=== PATIENT | male | born 1965 | race African-American/Black ===

== ENCOUNTER 2020-07-14 13:01 | Inpatient (IN) | payer OTHER ==
[~2020-07-14 13:01] MED LIST: ACETAMINOPHEN 325 MG TABLET (FP) PO PRN; LOPERAMIDE HCL 2 MG CAPSULE PO PRN; MAGNESIUM CITRATE 300 ML BOTTLE PO PRN; MAGNESIUM HYDROX 2400MG/30ML ORAL SUSPENSION 30 ML CUP PO PRN; NICOTINE POLACRILEX 2 MG GUM BUC PRN; P-EPHED 60MG/TRIPROLIDI 2.5MG TABLET PO PRN; guaiFENesin 200 MG/10 ML 10 ML UNIT-DOSE CUPS PO PRN
[2020-07-14] MEDS: INSULIN SLIDING SCALE (NOVOLOG) 1 VIAL SQ SCH ×3 (14:33→21:08)
[2020-07-14] MEDS: THIAMINE HCL 100 MG TABLET (FP) PO SCH (21:04)
[2020-07-14] MEDS: MELATONIN 5 MG TABLETS PO SCH (21:04)
[2020-07-14] MEDS: LIDOCAINE PATCH REMOVAL MC SCH (21:08)
[2020-07-14] MEDS ORDERED: INSULIN (NOVOLOG) ASPART 100 UNITS/ML 10ML VIAL ONE (21:44)
[2020-07-15] MEDS ORDERED: INSULIN (NOVOLOG) ASPART 100 UNITS/ML 10ML VIAL ONE ×3 (05:58→21:46)
[2020-07-15] MEDS: INSULIN SLIDING SCALE (NOVOLOG) 1 VIAL SQ SCH ×4 (06:00→21:38)
[2020-07-15] MEDS: LIDOCAINE 5% TOPICAL PATCH TP SCH (09:37)
[2020-07-15] MEDS: NICOTINE 7 MG/24 HOURS TOPICAL PATCH TD SCH (09:38)
[2020-07-15] MEDS: PANTOPRAZOLE 20 MG TABLET PO SCH (09:38)
[2020-07-15] MEDS: LISINOPRIL 20 MG TABLET PO SCH (09:38)
[2020-07-15] MEDS: PRENATAL VITAMINS W/ FOLIC ACID TABLET (FP) PO SCH (09:38)
[2020-07-15] MEDS: METHOCARBAMOL 500 MG TABLET PO SCH ×4 (09:38→21:35)
[2020-07-15] MEDS ORDERED: amLODIPine BESYLATE 10 MG TABLET (FP) PO SCH (10:00)
[2020-07-15] MEDS: THIAMINE HCL 100 MG TABLET (FP) PO SCH (21:35)
[2020-07-15] MEDS: MELATONIN 5 MG TABLETS PO SCH (21:35)
[2020-07-15] MEDS: LIDOCAINE PATCH REMOVAL MC SCH (21:39)
[2020-07-16] MEDS: amLODIPine BESYLATE 10 MG TABLET (FP) PO SCH (06:10)
[2020-07-16] MEDS: IBUPROFEN 400 MG TABLET (FP) PO PRN (06:13)
[2020-07-16] MEDS: INSULIN SLIDING SCALE (NOVOLOG) 1 VIAL SQ SCH ×4 (07:21→21:00)
[2020-07-16] MEDS ORDERED: INSULIN (NOVOLOG) ASPART 100 UNITS/ML 10ML VIAL ONE ×3 (07:21→21:39)
[2020-07-16] MEDS: PANTOPRAZOLE 20 MG TABLET PO SCH (09:56)
[2020-07-16] MEDS: LISINOPRIL 20 MG TABLET PO SCH (09:56)
[2020-07-16] MEDS: PRENATAL VITAMINS W/ FOLIC ACID TABLET (FP) PO SCH (09:56)
[2020-07-16] MEDS: LIDOCAINE 5% TOPICAL PATCH TP SCH (09:57)
[2020-07-16] MEDS: METHOCARBAMOL 500 MG TABLET PO SCH ×4 (09:57→21:00)
[2020-07-16] MEDS: NICOTINE 7 MG/24 HOURS TOPICAL PATCH TD SCH (09:58)
[2020-07-16] MEDS ORDERED: INSULIN REGULAR HUMAN 100 UNITS/ML *VIAL SQ ONE (11:57)
[2020-07-16] MEDS ORDERED: INSULIN (NOVOLOG) ASPART 100 UNITS/ML 10ML VIAL SQ ONE ×2 (11:58→14:14)
[2020-07-16] MEDS: MELATONIN 5 MG TABLETS PO SCH (21:00)
[2020-07-16] MEDS: THIAMINE HCL 100 MG TABLET (FP) PO SCH (21:00)
[2020-07-16] MEDS: LIDOCAINE PATCH REMOVAL MC SCH (21:00)
[2020-07-17] MEDS: amLODIPine BESYLATE 10 MG TABLET (FP) PO SCH (05:59)
[2020-07-17] MEDS: INSULIN SLIDING SCALE (NOVOLOG) 1 VIAL SQ SCH ×4 (06:52→22:07)
[2020-07-17] MEDS: INSULIN (NOVOLOG MIX 70/30) 100 UNITS/ML MDV SQ SCH (06:52)
[2020-07-17] MEDS ORDERED: INSULIN (NOVOLOG) ASPART 100 UNITS/ML 10ML VIAL ONE ×4 (06:54→22:04)
[2020-07-17] MEDS: PANTOPRAZOLE 20 MG TABLET PO SCH (09:45)
[2020-07-17] MEDS: NICOTINE 7 MG/24 HOURS TOPICAL PATCH TD SCH (09:45)
[2020-07-17] MEDS: LISINOPRIL 20 MG TABLET PO SCH (09:45)
[2020-07-17] MEDS: METHOCARBAMOL 500 MG TABLET PO SCH ×4 (09:45→22:06)
[2020-07-17] MEDS: LIDOCAINE 5% TOPICAL PATCH TP SCH (09:45)
[2020-07-17] MEDS: PRENATAL VITAMINS W/ FOLIC ACID TABLET (FP) PO SCH (09:45)
[2020-07-17] MEDS: MELATONIN 5 MG TABLETS PO SCH (22:05)
[2020-07-17] MEDS: THIAMINE HCL 100 MG TABLET (FP) PO SCH (22:05)
[2020-07-17] MEDS: LIDOCAINE PATCH REMOVAL MC SCH (22:06)
[2020-07-18] MEDS: amLODIPine BESYLATE 10 MG TABLET (FP) PO SCH (06:09)
[2020-07-18] MEDS ORDERED: INSULIN (NOVOLOG) ASPART 100 UNITS/ML 10ML VIAL ONE ×4 (07:04→22:07)
[2020-07-18] MEDS: INSULIN SLIDING SCALE (NOVOLOG) 1 VIAL SQ SCH ×4 (07:05→22:09)
[2020-07-18] MEDS: INSULIN (NOVOLOG MIX 70/30) 100 UNITS/ML MDV SQ SCH (07:19)
[2020-07-18] MEDS: PANTOPRAZOLE 20 MG TABLET PO SCH (09:33)
[2020-07-18] MEDS: PRENATAL VITAMINS W/ FOLIC ACID TABLET (FP) PO SCH (09:33)
[2020-07-18] MEDS: NICOTINE 7 MG/24 HOURS TOPICAL PATCH TD SCH (09:33)
[2020-07-18] MEDS: LIDOCAINE 5% TOPICAL PATCH TP SCH (09:33)
[2020-07-18] MEDS: LISINOPRIL 20 MG TABLET PO SCH (09:33)
[2020-07-18] MEDS: METHOCARBAMOL 500 MG TABLET PO SCH ×4 (09:33→21:13)
[2020-07-18] MEDS: THIAMINE HCL 100 MG TABLET (FP) PO SCH (21:13)
[2020-07-18] MEDS: LIDOCAINE PATCH REMOVAL MC SCH (21:13)
[2020-07-18] MEDS: MELATONIN 5 MG TABLETS PO SCH (21:13)
[2020-07-19] MEDS: amLODIPine BESYLATE 10 MG TABLET (FP) PO SCH (06:30)
[2020-07-19] MEDS: INSULIN SLIDING SCALE (NOVOLOG) 1 VIAL SQ SCH ×4 (06:33→21:55)
[2020-07-19] MEDS: INSULIN (NOVOLOG MIX 70/30) 100 UNITS/ML MDV SQ SCH (06:33)
[2020-07-19] MEDS: PRENATAL VITAMINS W/ FOLIC ACID TABLET (FP) PO SCH (09:37)
[2020-07-19] MEDS: PANTOPRAZOLE 20 MG TABLET PO SCH (09:38)
[2020-07-19] MEDS: LISINOPRIL 20 MG TABLET PO SCH (09:38)
[2020-07-19] MEDS: LIDOCAINE 5% TOPICAL PATCH TP SCH (09:38)
[2020-07-19] MEDS: NICOTINE 7 MG/24 HOURS TOPICAL PATCH TD SCH (09:38)
[2020-07-19] MEDS: METHOCARBAMOL 500 MG TABLET PO SCH ×3 (11:52→21:48)
[2020-07-19] MEDS ORDERED: INSULIN (NOVOLOG) ASPART 100 UNITS/ML 10ML VIAL ONE ×2 (16:31→21:59)
[2020-07-19] MEDS: THIAMINE HCL 100 MG TABLET (FP) PO SCH (21:48)
[2020-07-19] MEDS: LIDOCAINE PATCH REMOVAL MC SCH (21:49)
[2020-07-19] MEDS: MELATONIN 5 MG TABLETS PO SCH (21:49)
[2020-07-20] MEDS: METHOCARBAMOL 500 MG TABLET PO SCH ×4 (06:03→20:30)
[2020-07-20] MEDS: amLODIPine BESYLATE 10 MG TABLET (FP) PO SCH (06:03)
[2020-07-20] MEDS: INSULIN SLIDING SCALE (NOVOLOG) 1 VIAL SQ SCH ×4 (07:03→21:05)
[2020-07-20] MEDS: INSULIN (NOVOLOG MIX 70/30) 100 UNITS/ML MDV SQ SCH (07:03)
[2020-07-20] MEDS ORDERED: INSULIN (NOVOLOG) ASPART 100 UNITS/ML 10ML VIAL ONE ×3 (07:03→21:37)
[2020-07-20] MEDS: PRENATAL VITAMINS W/ FOLIC ACID TABLET (FP) PO SCH (09:48)
[2020-07-20] MEDS: PANTOPRAZOLE 20 MG TABLET PO SCH (09:49)
[2020-07-20] MEDS: NICOTINE 7 MG/24 HOURS TOPICAL PATCH TD SCH (09:49)
[2020-07-20] MEDS: LIDOCAINE 5% TOPICAL PATCH TP SCH (09:49)
[2020-07-20] MEDS: LISINOPRIL 20 MG TABLET PO SCH (09:49)
[2020-07-20] MEDS ORDERED: hydrOXYzine PAMOATE 25 MG CAPSULE (FP) PO PRN (15:02)
[2020-07-20] MEDS: THIAMINE HCL 100 MG TABLET (FP) PO SCH (21:02)
[2020-07-20] MEDS: MELATONIN 5 MG TABLETS PO SCH (21:02)
[2020-07-20] MEDS: LIDOCAINE PATCH REMOVAL MC SCH (21:06)
[2020-07-21] MEDS: IBUPROFEN 400 MG TABLET (FP) PO PRN (05:56)
[2020-07-21] MEDS: METHOCARBAMOL 500 MG TABLET PO SCH ×4 (05:57→21:40)
[2020-07-21] MEDS: amLODIPine BESYLATE 10 MG TABLET (FP) PO SCH (05:57)
[2020-07-21] MEDS: INSULIN SLIDING SCALE (NOVOLOG) 1 VIAL SQ SCH ×4 (06:52→21:44)
[2020-07-21] MEDS: INSULIN (NOVOLOG MIX 70/30) 100 UNITS/ML MDV SQ SCH (06:52)
[2020-07-21] MEDS ORDERED: INSULIN (NOVOLOG) ASPART 100 UNITS/ML 10ML VIAL ONE ×4 (06:53→21:52)
[2020-07-21] MEDS: PRENATAL VITAMINS W/ FOLIC ACID TABLET (FP) PO SCH (10:17)
[2020-07-21] MEDS: PANTOPRAZOLE 20 MG TABLET PO SCH (10:17)
[2020-07-21] MEDS: LISINOPRIL 20 MG TABLET PO SCH (10:17)
[2020-07-21] MEDS: NICOTINE 7 MG/24 HOURS TOPICAL PATCH TD SCH (10:18)
[2020-07-21] MEDS: LIDOCAINE 5% TOPICAL PATCH TP SCH (10:18)
[2020-07-21] MEDS: THIAMINE HCL 100 MG TABLET (FP) PO SCH (21:41)
[2020-07-21] MEDS: MELATONIN 5 MG TABLETS PO SCH (21:41)
[2020-07-21] MEDS: LIDOCAINE PATCH REMOVAL MC SCH (21:44)
[2020-07-22] MEDS: METHOCARBAMOL 500 MG TABLET PO SCH ×4 (06:02→21:09)
[2020-07-22] MEDS: amLODIPine BESYLATE 10 MG TABLET (FP) PO SCH (06:02)
[2020-07-22] MEDS: INSULIN (NOVOLOG MIX 70/30) 100 UNITS/ML MDV SQ SCH (07:06)
[2020-07-22] MEDS: INSULIN SLIDING SCALE (NOVOLOG) 1 VIAL SQ SCH ×4 (07:06→21:11)
[2020-07-22] MEDS ORDERED: INSULIN (NOVOLOG) ASPART 100 UNITS/ML 10ML VIAL ONE ×3 (07:06→22:00)
[2020-07-22] MEDS: LISINOPRIL 20 MG TABLET PO SCH (09:45)
[2020-07-22] MEDS: PANTOPRAZOLE 20 MG TABLET PO SCH (09:46)
[2020-07-22] MEDS: PRENATAL VITAMINS W/ FOLIC ACID TABLET (FP) PO SCH (09:47)
[2020-07-22] MEDS: NICOTINE 7 MG/24 HOURS TOPICAL PATCH TD SCH (09:48)
[2020-07-22] MEDS: LIDOCAINE 5% TOPICAL PATCH TP SCH (09:48)
[2020-07-22] MEDS ORDERED: PT OWN MED DRAWER 7, Y5N ONE (21:05)
[2020-07-22] MEDS: THIAMINE HCL 100 MG TABLET (FP) PO SCH (21:09)
[2020-07-22] MEDS: MELATONIN 5 MG TABLETS PO SCH (21:09)
[2020-07-22] MEDS: LIDOCAINE PATCH REMOVAL MC SCH (21:10)
[2020-07-23] MEDS: amLODIPine BESYLATE 10 MG TABLET (FP) PO SCH (06:21)
[2020-07-23] MEDS: METHOCARBAMOL 500 MG TABLET PO SCH ×4 (06:21→20:30)
[2020-07-23] MEDS: INSULIN (NOVOLOG MIX 70/30) 100 UNITS/ML MDV SQ SCH (06:24)
[2020-07-23] MEDS: INSULIN SLIDING SCALE (NOVOLOG) 1 VIAL SQ SCH ×4 (06:24→21:25)
[2020-07-23] MEDS: LIDOCAINE 5% TOPICAL PATCH TP SCH (10:06)
[2020-07-23] MEDS: PRENATAL VITAMINS W/ FOLIC ACID TABLET (FP) PO SCH (10:06)
[2020-07-23] MEDS: LISINOPRIL 20 MG TABLET PO SCH (10:06)
[2020-07-23] MEDS: PANTOPRAZOLE 20 MG TABLET PO SCH (10:06)
[2020-07-23] MEDS: NICOTINE 7 MG/24 HOURS TOPICAL PATCH TD SCH (10:06)
[2020-07-23] MEDS: SODIUM CHLORIDE NASAL SPRAY 44 ML BOTTLE NS PRN (10:07)
[2020-07-23] MEDS ORDERED: INSULIN (NOVOLOG) ASPART 100 UNITS/ML 10ML VIAL ONE ×2 (11:55→21:30)
[2020-07-23] MEDS: MELATONIN 5 MG TABLETS PO SCH (21:23)
[2020-07-23] MEDS: THIAMINE HCL 100 MG TABLET (FP) PO SCH (21:23)
[2020-07-23] MEDS: LIDOCAINE PATCH REMOVAL MC SCH (21:26)
[2020-07-24] MEDS: amLODIPine BESYLATE 10 MG TABLET (FP) PO SCH (06:14)
[2020-07-24] MEDS: METHOCARBAMOL 500 MG TABLET PO SCH ×4 (06:15→21:03)
[2020-07-24] MEDS: INSULIN (NOVOLOG MIX 70/30) 100 UNITS/ML MDV SQ SCH (06:18)
[2020-07-24] MEDS: INSULIN SLIDING SCALE (NOVOLOG) 1 VIAL SQ SCH ×4 (06:18→21:07)
[2020-07-24] MEDS ORDERED: INSULIN (NOVOLOG) ASPART 100 UNITS/ML 10ML VIAL ONE ×4 (06:36→21:07)
[2020-07-24] MEDS: PRENATAL VITAMINS W/ FOLIC ACID TABLET (FP) PO SCH (09:52)
[2020-07-24] MEDS: PANTOPRAZOLE 20 MG TABLET PO SCH (09:52)
[2020-07-24] MEDS: NICOTINE 7 MG/24 HOURS TOPICAL PATCH TD SCH (09:52)
[2020-07-24] MEDS: LISINOPRIL 20 MG TABLET PO SCH (09:52)
[2020-07-24] MEDS: LIDOCAINE 5% TOPICAL PATCH TP SCH (09:52)
[2020-07-24] MEDS: LIDOCAINE PATCH REMOVAL MC SCH (21:03)
[2020-07-24] MEDS: MELATONIN 5 MG TABLETS PO SCH (21:03)
[2020-07-24] MEDS: THIAMINE HCL 100 MG TABLET (FP) PO SCH (21:08)
[2020-07-25] MEDS: METHOCARBAMOL 500 MG TABLET PO SCH ×4 (06:12→21:40)
[2020-07-25] MEDS: amLODIPine BESYLATE 10 MG TABLET (FP) PO SCH (06:12)
[2020-07-25] MEDS: INSULIN (NOVOLOG MIX 70/30) 100 UNITS/ML MDV SQ SCH (06:15)
[2020-07-25] MEDS: INSULIN SLIDING SCALE (NOVOLOG) 1 VIAL SQ SCH ×4 (06:15→21:45)
[2020-07-25] MEDS ORDERED: INSULIN (NOVOLOG) ASPART 100 UNITS/ML 10ML VIAL ONE ×4 (06:32→22:07)
[2020-07-25] MEDS: PRENATAL VITAMINS W/ FOLIC ACID TABLET (FP) PO SCH (09:31)
[2020-07-25] MEDS: LIDOCAINE 5% TOPICAL PATCH TP SCH (09:31)
[2020-07-25] MEDS: PANTOPRAZOLE 20 MG TABLET PO SCH (09:31)
[2020-07-25] MEDS: LISINOPRIL 20 MG TABLET PO SCH (09:31)
[2020-07-25] MEDS: NICOTINE 7 MG/24 HOURS TOPICAL PATCH TD SCH (09:31)
[2020-07-25] MEDS: MELATONIN 5 MG TABLETS PO SCH (21:40)
[2020-07-25] MEDS: THIAMINE HCL 100 MG TABLET (FP) PO SCH (21:40)
[2020-07-25] MEDS: LIDOCAINE PATCH REMOVAL MC SCH (21:44)
[2020-07-26] MEDS: amLODIPine BESYLATE 10 MG TABLET (FP) PO SCH (06:10)
[2020-07-26] MEDS: METHOCARBAMOL 500 MG TABLET PO SCH ×4 (06:10→21:17)
[2020-07-26] MEDS: INSULIN (NOVOLOG MIX 70/30) 100 UNITS/ML MDV SQ SCH (07:01)
[2020-07-26] MEDS: INSULIN SLIDING SCALE (NOVOLOG) 1 VIAL SQ SCH ×4 (07:02→21:18)
[2020-07-26] MEDS ORDERED: INSULIN (NOVOLOG) ASPART 100 UNITS/ML 10ML VIAL ONE ×4 (07:02→22:04)
[2020-07-26] MEDS: LISINOPRIL 20 MG TABLET PO SCH (09:57)
[2020-07-26] MEDS: PRENATAL VITAMINS W/ FOLIC ACID TABLET (FP) PO SCH (09:57)
[2020-07-26] MEDS: PANTOPRAZOLE 20 MG TABLET PO SCH (09:57)
[2020-07-26] MEDS: LIDOCAINE 5% TOPICAL PATCH TP SCH (09:58)
[2020-07-26] MEDS: SODIUM CHLORIDE NASAL SPRAY 44 ML BOTTLE NS PRN (09:58)
[2020-07-26] MEDS: NICOTINE 7 MG/24 HOURS TOPICAL PATCH TD SCH (09:58)
[2020-07-26] MEDS: MELATONIN 5 MG TABLETS PO SCH (21:17)
[2020-07-26] MEDS: THIAMINE HCL 100 MG TABLET (FP) PO SCH (21:18)
[2020-07-26] MEDS ORDERED: hydrALAZINE HCL 50 MG TABLET (FP) PO SCH (22:00)
[2020-07-26] MEDS: LIDOCAINE PATCH REMOVAL MC SCH (23:32)
[2020-07-27] MEDS: METHOCARBAMOL 500 MG TABLET PO SCH ×4 (05:56→20:30)
[2020-07-27] MEDS: amLODIPine BESYLATE 10 MG TABLET (FP) PO SCH (05:56)
[2020-07-27] MEDS: INSULIN (NOVOLOG MIX 70/30) 100 UNITS/ML MDV SQ SCH (06:49)
[2020-07-27] MEDS: INSULIN SLIDING SCALE (NOVOLOG) 1 VIAL SQ SCH ×4 (06:50→21:42)
[2020-07-27] MEDS ORDERED: INSULIN (NOVOLOG) ASPART 100 UNITS/ML 10ML VIAL ONE ×4 (06:51→21:45)
[2020-07-27] MEDS: NICOTINE 7 MG/24 HOURS TOPICAL PATCH TD SCH (09:43)
[2020-07-27] MEDS: PRENATAL VITAMINS W/ FOLIC ACID TABLET (FP) PO SCH (09:43)
[2020-07-27] MEDS: PANTOPRAZOLE 20 MG TABLET PO SCH (09:43)
[2020-07-27] MEDS: LISINOPRIL 20 MG TABLET PO SCH (09:43)
[2020-07-27] MEDS: SODIUM CHLORIDE NASAL SPRAY 44 ML BOTTLE NS PRN ×2 (09:43→10:05)
[2020-07-27] MEDS: LIDOCAINE 5% TOPICAL PATCH TP SCH (09:44)
[2020-07-27] MEDS ORDERED: hydrALAZINE HCL 50 MG TABLET (FP) PO ONE (11:15)
[2020-07-27] MEDS: THIAMINE HCL 100 MG TABLET (FP) PO SCH (21:38)
[2020-07-27] MEDS: MELATONIN 5 MG TABLETS PO SCH (21:38)
[2020-07-27] MEDS: hydrALAZINE HCL 50 MG TABLET (FP) PO SCH (21:39)
[2020-07-27] MEDS: LIDOCAINE PATCH REMOVAL MC SCH (21:42)
[2020-07-28] MEDS ORDERED: cloNIDine HCL 0.1 MG TABLET PO ONE (03:00)
[2020-07-28] MEDS: IBUPROFEN 400 MG TABLET (FP) PO PRN (03:02)
[2020-07-28] MEDS: HYDROCHLOROTHIAZIDE 25 MG TABLET (FP) PO SCH ×2 (03:08→10:39)
[2020-07-28] MEDS: hydrALAZINE HCL 50 MG TABLET (FP) PO SCH ×2 (06:29→21:15)
[2020-07-28] MEDS: amLODIPine BESYLATE 10 MG TABLET (FP) PO SCH (06:29)
[2020-07-28] MEDS: METHOCARBAMOL 500 MG TABLET PO SCH ×4 (06:29→20:30)
[2020-07-28] MEDS: INSULIN SLIDING SCALE (NOVOLOG) 1 VIAL SQ SCH ×4 (06:57→21:17)
[2020-07-28] MEDS: INSULIN (NOVOLOG MIX 70/30) 100 UNITS/ML MDV SQ SCH (06:57)
[2020-07-28] MEDS ORDERED: INSULIN (NOVOLOG) ASPART 100 UNITS/ML 10ML VIAL ONE (06:57)
[2020-07-28] MEDS: PANTOPRAZOLE 20 MG TABLET PO SCH (10:38)
[2020-07-28] MEDS: PRENATAL VITAMINS W/ FOLIC ACID TABLET (FP) PO SCH (10:38)
[2020-07-28] MEDS: LISINOPRIL 20 MG TABLET PO SCH (10:39)
[2020-07-28] MEDS: NICOTINE 7 MG/24 HOURS TOPICAL PATCH TD SCH (10:40)
[2020-07-28] MEDS: LIDOCAINE 5% TOPICAL PATCH TP SCH (10:40)
[2020-07-28] MEDS ORDERED: PT OWN MED DRAWER 7, Y5N ONE (18:31)
[2020-07-28] MEDS: THIAMINE HCL 100 MG TABLET (FP) PO SCH (21:15)
[2020-07-28] MEDS: MELATONIN 5 MG TABLETS PO SCH (21:15)
[2020-07-28] MEDS: LIDOCAINE PATCH REMOVAL MC SCH (21:18)
[2020-07-29] MEDS: hydrALAZINE HCL 50 MG TABLET (FP) PO SCH ×2 (05:54→21:02)
[2020-07-29] MEDS: METHOCARBAMOL 500 MG TABLET PO SCH ×4 (05:55→20:30)
[2020-07-29] MEDS: amLODIPine BESYLATE 10 MG TABLET (FP) PO SCH (05:55)
[2020-07-29] MEDS ORDERED: INSULIN (NOVOLOG) ASPART 100 UNITS/ML 10ML VIAL ONE ×3 (05:58→16:19)
[2020-07-29] MEDS: INSULIN SLIDING SCALE (NOVOLOG) 1 VIAL SQ SCH ×4 (06:00→21:04)
[2020-07-29] MEDS: INSULIN (NOVOLOG MIX 70/30) 100 UNITS/ML MDV SQ SCH (06:01)
[2020-07-29] MEDS: PANTOPRAZOLE 20 MG TABLET PO SCH (09:44)
[2020-07-29] MEDS: LIDOCAINE 5% TOPICAL PATCH TP SCH (09:44)
[2020-07-29] MEDS: PRENATAL VITAMINS W/ FOLIC ACID TABLET (FP) PO SCH (09:44)
[2020-07-29] MEDS: HYDROCHLOROTHIAZIDE 25 MG TABLET (FP) PO SCH (09:44)
[2020-07-29] MEDS: LISINOPRIL 20 MG TABLET PO SCH (09:44)
[2020-07-29] MEDS: NICOTINE 7 MG/24 HOURS TOPICAL PATCH TD SCH (09:44)
[2020-07-29] MEDS: THIAMINE HCL 100 MG TABLET (FP) PO SCH (21:01)
[2020-07-29] MEDS: MELATONIN 5 MG TABLETS PO SCH (21:02)
[2020-07-29] MEDS: LIDOCAINE PATCH REMOVAL MC SCH (21:04)
[2020-07-30] MEDS: METHOCARBAMOL 500 MG TABLET PO SCH ×4 (06:00→22:01)
[2020-07-30] MEDS: hydrALAZINE HCL 50 MG TABLET (FP) PO SCH ×2 (07:05→22:01)
[2020-07-30] MEDS: amLODIPine BESYLATE 10 MG TABLET (FP) PO SCH (07:05)
[2020-07-30] MEDS ORDERED: INSULIN (NOVOLOG) ASPART 100 UNITS/ML 10ML VIAL ONE ×2 (07:09→16:43)
[2020-07-30] MEDS: INSULIN (NOVOLOG MIX 70/30) 100 UNITS/ML MDV SQ SCH (07:09)
[2020-07-30] MEDS: INSULIN SLIDING SCALE (NOVOLOG) 1 VIAL SQ SCH ×4 (07:09→22:02)
[2020-07-30] MEDS: LISINOPRIL 20 MG TABLET PO SCH (09:57)
[2020-07-30] MEDS: PANTOPRAZOLE 20 MG TABLET PO SCH (09:57)
[2020-07-30] MEDS: HYDROCHLOROTHIAZIDE 25 MG TABLET (FP) PO SCH (09:57)
[2020-07-30] MEDS: NICOTINE 7 MG/24 HOURS TOPICAL PATCH TD SCH (09:57)
[2020-07-30] MEDS: LIDOCAINE 5% TOPICAL PATCH TP SCH (09:57)
[2020-07-30] MEDS: PRENATAL VITAMINS W/ FOLIC ACID TABLET (FP) PO SCH (09:57)
[2020-07-30] MEDS ORDERED: PT OWN MED DRAWER 7, Y5N ONE (18:20)
[2020-07-30] MEDS: MELATONIN 5 MG TABLETS PO SCH (22:02)
[2020-07-30] MEDS: THIAMINE HCL 100 MG TABLET (FP) PO SCH (22:02)
[2020-07-30] MEDS: LIDOCAINE PATCH REMOVAL MC SCH (22:12)
[2020-07-31] MEDS: amLODIPine BESYLATE 10 MG TABLET (FP) PO SCH (06:12)
[2020-07-31] MEDS: METHOCARBAMOL 500 MG TABLET PO SCH ×4 (06:13→21:11)
[2020-07-31] MEDS: hydrALAZINE HCL 50 MG TABLET (FP) PO SCH ×2 (06:13→21:11)
[2020-07-31] MEDS ORDERED: INSULIN (NOVOLOG) ASPART 100 UNITS/ML 10ML VIAL ONE ×3 (06:55→22:23)
[2020-07-31] MEDS: INSULIN (NOVOLOG MIX 70/30) 100 UNITS/ML MDV SQ SCH (06:56)
[2020-07-31] MEDS: INSULIN SLIDING SCALE (NOVOLOG) 1 VIAL SQ SCH ×4 (06:56→22:07)
[2020-07-31] MEDS: PRENATAL VITAMINS W/ FOLIC ACID TABLET (FP) PO SCH (10:00)
[2020-07-31] MEDS: HYDROCHLOROTHIAZIDE 25 MG TABLET (FP) PO SCH (10:01)
[2020-07-31] MEDS: NICOTINE 7 MG/24 HOURS TOPICAL PATCH TD SCH (10:01)
[2020-07-31] MEDS: LISINOPRIL 20 MG TABLET PO SCH (10:01)
[2020-07-31] MEDS: PANTOPRAZOLE 20 MG TABLET PO SCH (10:01)
[2020-07-31] MEDS: LIDOCAINE 5% TOPICAL PATCH TP SCH (10:01)
[2020-07-31] MEDS ORDERED: PT OWN MED DRAWER 7, Y5N ONE (18:58)
[2020-07-31] MEDS: MELATONIN 5 MG TABLETS PO SCH (21:11)
[2020-07-31] MEDS: LIDOCAINE PATCH REMOVAL MC SCH (21:12)
[2020-07-31] MEDS: THIAMINE HCL 100 MG TABLET (FP) PO SCH (22:08)
[2020-08-01] MEDS: hydrALAZINE HCL 50 MG TABLET (FP) PO SCH ×2 (06:05→23:07)
[2020-08-01] MEDS: METHOCARBAMOL 500 MG TABLET PO SCH ×4 (06:05→23:06)
[2020-08-01] MEDS: amLODIPine BESYLATE 10 MG TABLET (FP) PO SCH (06:05)
[2020-08-01] MEDS ORDERED: INSULIN (NOVOLOG) ASPART 100 UNITS/ML 10ML VIAL ONE ×3 (07:28→23:05)
[2020-08-01] MEDS: INSULIN SLIDING SCALE (NOVOLOG) 1 VIAL SQ SCH ×4 (07:28→23:12)
[2020-08-01] MEDS: INSULIN (NOVOLOG MIX 70/30) 100 UNITS/ML MDV SQ SCH (07:29)
[2020-08-01] MEDS: MAG HYDROX/AL HYDROX/SIMETH 30 ML UNIT-DOSE CUP PO PRN (08:40)
[2020-08-01] MEDS: PRENATAL VITAMINS W/ FOLIC ACID TABLET (FP) PO SCH (10:30)
[2020-08-01] MEDS: PANTOPRAZOLE 20 MG TABLET PO SCH (10:30)
[2020-08-01] MEDS: HYDROCHLOROTHIAZIDE 25 MG TABLET (FP) PO SCH (10:30)
[2020-08-01] MEDS: NICOTINE 7 MG/24 HOURS TOPICAL PATCH TD SCH (10:30)
[2020-08-01] MEDS: LIDOCAINE 5% TOPICAL PATCH TP SCH (10:30)
[2020-08-01] MEDS: LISINOPRIL 20 MG TABLET PO SCH (10:30)
[2020-08-01] MEDS: ONDANSETRON *ODT* 4 MG TABLET SL PRN (10:58)
[2020-08-01] MEDS ORDERED: TRIMETHOBENZAMIDE HCL 200MG/2ML INJ IM PRN ×2 (11:41→12:01)
[2020-08-01] MEDS: MELATONIN 5 MG TABLETS PO SCH (23:06)
[2020-08-01] MEDS: THIAMINE HCL 100 MG TABLET (FP) PO SCH (23:06)
[2020-08-01] MEDS: LIDOCAINE PATCH REMOVAL MC SCH (23:07)
[2020-08-02] MEDS: IBUPROFEN 400 MG TABLET (FP) PO PRN (02:26)
[2020-08-02] MEDS ORDERED: PT OWN MED DRAWER 7, Y5N ONE ×3 (03:22→18:21)
[2020-08-02] MEDS: METHOCARBAMOL 500 MG TABLET PO SCH ×4 (06:41→21:04)
[2020-08-02] MEDS: hydrALAZINE HCL 50 MG TABLET (FP) PO SCH ×2 (06:41→22:11)
[2020-08-02] MEDS: amLODIPine BESYLATE 10 MG TABLET (FP) PO SCH (06:41)
[2020-08-02] MEDS: INSULIN (NOVOLOG MIX 70/30) 100 UNITS/ML MDV SQ SCH (06:46)
[2020-08-02] MEDS: INSULIN SLIDING SCALE (NOVOLOG) 1 VIAL SQ SCH ×4 (06:46→21:08)
[2020-08-02] MEDS: LISINOPRIL 20 MG TABLET PO SCH (10:32)
[2020-08-02] MEDS: PRENATAL VITAMINS W/ FOLIC ACID TABLET (FP) PO SCH (10:32)
[2020-08-02] MEDS: HYDROCHLOROTHIAZIDE 25 MG TABLET (FP) PO SCH (10:32)
[2020-08-02] MEDS: PANTOPRAZOLE 20 MG TABLET PO SCH (10:33)
[2020-08-02] MEDS: NICOTINE 7 MG/24 HOURS TOPICAL PATCH TD SCH (10:33)
[2020-08-02] MEDS: LIDOCAINE 5% TOPICAL PATCH TP SCH (10:33)
[2020-08-02] MEDS ORDERED: INSULIN (NOVOLOG) ASPART 100 UNITS/ML 10ML VIAL ONE ×3 (12:03→22:39)
[2020-08-02] MEDS: MELATONIN 5 MG TABLETS PO SCH (21:04)
[2020-08-02] MEDS: THIAMINE HCL 100 MG TABLET (FP) PO SCH (21:04)
[2020-08-02] MEDS: LIDOCAINE PATCH REMOVAL MC SCH (21:05)
[2020-08-03] MEDS: METHOCARBAMOL 500 MG TABLET PO SCH ×4 (05:55→20:40)
[2020-08-03] MEDS: amLODIPine BESYLATE 10 MG TABLET (FP) PO SCH (05:55)
[2020-08-03] MEDS: hydrALAZINE HCL 50 MG TABLET (FP) PO SCH ×2 (05:56→21:59)
[2020-08-03] MEDS: INSULIN (NOVOLOG MIX 70/30) 100 UNITS/ML MDV SQ SCH (06:51)
[2020-08-03] MEDS ORDERED: INSULIN (NOVOLOG) ASPART 100 UNITS/ML 10ML VIAL ONE ×2 (06:52→16:42)
[2020-08-03] MEDS: INSULIN SLIDING SCALE (NOVOLOG) 1 VIAL SQ SCH ×4 (06:52→22:04)
[2020-08-03] MEDS: LISINOPRIL 20 MG TABLET PO SCH (10:24)
[2020-08-03] MEDS: PRENATAL VITAMINS W/ FOLIC ACID TABLET (FP) PO SCH (10:24)
[2020-08-03] MEDS: HYDROCHLOROTHIAZIDE 25 MG TABLET (FP) PO SCH (10:24)
[2020-08-03] MEDS: PANTOPRAZOLE 20 MG TABLET PO SCH ×2 (10:24→22:00)
[2020-08-03] MEDS: LIDOCAINE 5% TOPICAL PATCH TP SCH (10:25)
[2020-08-03] MEDS: NICOTINE 7 MG/24 HOURS TOPICAL PATCH TD SCH (10:25)
[2020-08-03] MEDS: ONDANSETRON *ODT* 4 MG TABLET SL PRN (12:23)
[2020-08-03] MEDS ORDERED: BISACODYL 5 MG TABLET.DR (FP) PO PRN (12:42)
[2020-08-03 17:02] LABS: POTASSIUM 3.3 mmol/L (3.5-5.1)
[2020-08-03 17:04] LABS: CALCIUM 9.5 mg/dL (8.5-10.1)
[2020-08-03 17:05] LABS: ALBUMIN 4.2 g/dl (3.4-5.0); BLOOD UREA NITROGEN 20.9 mg/dL (7-18)
[2020-08-03 17:08] LABS: CREATININE 1.8 mg/dL (0.55-1.3)
[2020-08-03 17:09] LABS: BILIRUBIN,TOTAL 0.9 mg/dL (0.2-1); TOT PROT 8.2 g/dl (6.4-8.2)
[2020-08-03] MEDS ORDERED: PT OWN MED DRAWER 7, Y5N ONE (18:24)
[2020-08-03] MEDS: THIAMINE HCL 100 MG TABLET (FP) PO SCH (21:59)
[2020-08-03] MEDS: MELATONIN 5 MG TABLETS PO SCH (22:00)
[2020-08-03] MEDS: LIDOCAINE PATCH REMOVAL MC SCH (22:02)
[2020-08-04] MEDS: MAG HYDROX/AL HYDROX/SIMETH 30 ML UNIT-DOSE CUP PO PRN ×3 (02:24→23:08)
[2020-08-04] MEDS: METHOCARBAMOL 500 MG TABLET PO SCH ×4 (06:00→20:35)
[2020-08-04] MEDS: INSULIN (NOVOLOG MIX 70/30) 100 UNITS/ML MDV SQ SCH (08:04)
[2020-08-04] MEDS: INSULIN SLIDING SCALE (NOVOLOG) 1 VIAL SQ SCH ×4 (08:05→21:14)
[2020-08-04] MEDS: amLODIPine BESYLATE 10 MG TABLET (FP) PO SCH (08:14)
[2020-08-04] MEDS: hydrALAZINE HCL 50 MG TABLET (FP) PO SCH ×2 (08:14→21:11)
[2020-08-04] MEDS ORDERED: POTASSIUM CHLORIDE ORAL LIQUID 20 MEQ/15 ML PO ONE (10:00)
[2020-08-04] MEDS ORDERED: POTASSIUM CHLORIDE ORAL LIQUID 20 MEQ/15 ML PO SCH (10:00)
[2020-08-04 10:43] LABS: MAGNESIUM 2.2 mg/dL (1.8-2.4)
[2020-08-04] MEDS: PANTOPRAZOLE 20 MG TABLET PO SCH ×2 (11:18→21:11)
[2020-08-04] MEDS: PRENATAL VITAMINS W/ FOLIC ACID TABLET (FP) PO SCH (11:18)
[2020-08-04] MEDS: LISINOPRIL 20 MG TABLET PO SCH (11:18)
[2020-08-04] MEDS: NICOTINE 7 MG/24 HOURS TOPICAL PATCH TD SCH (11:19)
[2020-08-04] MEDS: LIDOCAINE 5% TOPICAL PATCH TP SCH (11:19)
[2020-08-04] MEDS ORDERED: INSULIN (NOVOLOG) ASPART 100 UNITS/ML 10ML VIAL ONE ×2 (11:32→16:43)
[2020-08-04] MEDS ORDERED: cloNIDine HCL 0.1 MG TABLET PO ONE (11:35)
[2020-08-04] MEDS ORDERED: LACTULOSE 20 GM/30 ML UDC (FOR ORAL USE ONLY) PO PRN (15:32)
[2020-08-04] MEDS: LACTULOSE 20 GM/30 ML UDC (FOR ORAL USE ONLY) PO SCH ×2 (16:44→21:10)
[2020-08-04] MEDS: MELATONIN 5 MG TABLETS PO SCH (21:11)
[2020-08-04] MEDS: THIAMINE HCL 100 MG TABLET (FP) PO SCH (21:11)
[2020-08-04] MEDS: LIDOCAINE PATCH REMOVAL MC SCH (21:12)
[2020-08-05] MEDS ORDERED: PT OWN MED DRAWER 7, Y5N ONE ×6 (03:23→21:53)
[2020-08-05] MEDS: LACTULOSE 20 GM/30 ML UDC (FOR ORAL USE ONLY) PO SCH ×3 (06:15→21:52)
[2020-08-05] MEDS: amLODIPine BESYLATE 10 MG TABLET (FP) PO SCH (06:16)
[2020-08-05] MEDS: METHOCARBAMOL 500 MG TABLET PO SCH ×4 (06:16→20:30)
[2020-08-05] MEDS: hydrALAZINE HCL 50 MG TABLET (FP) PO SCH ×2 (06:16→21:52)
[2020-08-05] MEDS: INSULIN (NOVOLOG MIX 70/30) 100 UNITS/ML MDV SQ SCH (07:18)
[2020-08-05] MEDS: INSULIN SLIDING SCALE (NOVOLOG) 1 VIAL SQ SCH ×4 (07:18→21:57)
[2020-08-05] MEDS: LIDOCAINE 5% TOPICAL PATCH TP SCH (09:49)
[2020-08-05] MEDS: NICOTINE 7 MG/24 HOURS TOPICAL PATCH TD SCH (09:49)
[2020-08-05] MEDS: PRENATAL VITAMINS W/ FOLIC ACID TABLET (FP) PO SCH (09:49)
[2020-08-05] MEDS: LISINOPRIL 20 MG TABLET PO SCH (09:50)
[2020-08-05] MEDS: PANTOPRAZOLE 20 MG TABLET PO SCH ×2 (09:50→21:52)
[2020-08-05] MEDS: POTASSIUM CHLORIDE ORAL LIQUID 20 MEQ/15 ML PO SCH ×2 (13:51→21:53)
[2020-08-05] MEDS: MELATONIN 5 MG TABLETS PO SCH (21:51)
[2020-08-05] MEDS: THIAMINE HCL 100 MG TABLET (FP) PO SCH (21:53)
[2020-08-05] MEDS: LIDOCAINE PATCH REMOVAL MC SCH (21:53)
[2020-08-05] MEDS ORDERED: INSULIN (NOVOLOG) ASPART 100 UNITS/ML 10ML VIAL ONE (22:00)
[2020-08-06] MEDS: amLODIPine BESYLATE 10 MG TABLET (FP) PO SCH (06:39)
[2020-08-06] MEDS: METHOCARBAMOL 500 MG TABLET PO SCH (06:39)
[2020-08-06] MEDS: hydrALAZINE HCL 50 MG TABLET (FP) PO SCH (06:39)
[2020-08-06] MEDS: INSULIN (NOVOLOG MIX 70/30) 100 UNITS/ML MDV SQ SCH (06:41)
[2020-08-06] MEDS: LACTULOSE 20 GM/30 ML UDC (FOR ORAL USE ONLY) PO SCH (06:41)
[2020-08-06] MEDS: INSULIN SLIDING SCALE (NOVOLOG) 1 VIAL SQ SCH (06:42)
[2020-08-06 06:54] VITALS: BP 125/75; PULSE 111; TEMP 97.1
[2020-08-06] MEDS: PRENATAL VITAMINS W/ FOLIC ACID TABLET (FP) PO SCH (09:23)
[2020-08-06] MEDS: LIDOCAINE 5% TOPICAL PATCH TP SCH (09:23)
[2020-08-06] MEDS: LISINOPRIL 20 MG TABLET PO SCH (09:24)
[2020-08-06] MEDS: PANTOPRAZOLE 20 MG TABLET PO SCH (09:24)
[2020-08-06] MEDS: POTASSIUM CHLORIDE ORAL LIQUID 20 MEQ/15 ML PO SCH (09:24)
[2020-08-06] MEDS: NICOTINE 7 MG/24 HOURS TOPICAL PATCH TD SCH (09:24)
[2020-08-06 10:19] LABS: POTASSIUM 3.6 mmol/L (3.5-5.1)
[2020-08-06 10:27] LABS: CALCIUM 9.5 mg/dL (8.5-10.1)
[2020-08-06 10:28] LABS: ALBUMIN 4.1 g/dl (3.4-5.0); BLOOD UREA NITROGEN 15.2 mg/dL (7-18)
[2020-08-06 10:31] LABS: CREATININE 1.3 mg/dL (0.55-1.3)
[2020-08-06 10:33] LABS: BILIRUBIN,TOTAL 1.7 mg/dL (0.2-1)
== END 2020-08-06 09:40 | disposition home or self-care (01) | DRG 772 ==
LOC: YASAS 13:01 → Y3W 13:02
PROVIDERS: ADMIT Allergy & Immunology; ATTEND Allergy & Immunology
PROC: HZ42ZZZ Group Counseling for Substance Abuse Treatment, Cognitive-Behavioral (ICD-10-PCS; principal; 2020-07-14)
DX: F11.20 Opioid dependence, uncomplicated (principal); E11.65 Type 2 diabetes mellitus with hyperglycemia; Z79.4 Long term (current) use of insulin; E86.0 Dehydration; E87.6 Hypokalemia; I10 Essential (primary) hypertension; K59.00 Constipation, unspecified; M54.30 Sciatica, unspecified side; R11.2 Nausea with vomiting, unspecified; B18.2 Chronic viral hepatitis C; Z88.8 Allergy status to other drugs, medicaments and biological substances; Z59.0 Homelessness
CPT/HCPCS: 36415; 80053; 82140; 82150; 82962; 83690; 83735; 84132; J0735; Q0162

== ENCOUNTER 2020-08-01 16:43 | Emergency (ER) | payer BC, OTHER ==
[2020-08-01 17:03] VITALS: BMI 33.2
[2020-08-01] MEDS ORDERED: ACETAMINOPHEN 1000 MG/100 ML VIAL (NON FORMULARY) IVPB ONE (17:16)
[2020-08-01] MEDS ORDERED: FAMOTIDINE 20 MG/50 ML IVPB 20 MG/50 ML MG IVPB ONE ×2 (17:17→17:39)
[2020-08-01] MEDS ORDERED: MAG HYDROX/AL HYDROX/SIMETH 30 ML UNIT-DOSE CUP PO ONE (17:17)
[2020-08-01] MEDS ORDERED: METOCLOPRAMIDE HCL INJECTION 10 MG/2 ML VIAL IVPUSH ONE (17:17)
[2020-08-01] MEDS ORDERED: SODIUM CHLORIDE 1,000 ML IV STA (17:26)
[2020-08-01] MEDS ORDERED: METOCLOPRAMIDE HCL INJECTION 10 MG/2 ML VIAL ONE (17:39)
[2020-08-01] MEDS ORDERED: ACETAMINOPHEN INJECTION 100 ML IVPB ONE (17:39)
[2020-08-01 18:40] LABS: INR 1.26 (0.83-1.09); PROTHROMBIN TIME (PATIENT) 15.1 SEC (9.7-13.0)
[2020-08-01 18:42] LABS: ACTIVATED PTT 25.5 SECONDS (25.2-36.5)
[2020-08-01 18:47] LABS: MAGNESIUM 1.3 mg/dL (1.8-2.4)
[2020-08-01 18:50] LABS: PHOSPHOROUS 2.1 mg/dL (2.5-4.9)
[2020-08-01 18:57] LABS: EOS % 0.7 % (0-4.5); HEMATOCRIT 48.7 % (35.4-49); LYMPH % 36.7 % (8-40); MCH 31.3 pg (25.7-33.7); MCHC 32.8 g/dl (32.0-35.9); MEAN CELL VOLUME 95.6 fl (80-96); MEAN PLT VOLUME 9.1 fl (7.5-11.1); MONO % 8.5 % (3.8-10.2); NEUT % 53.1 % (42.8-82.8); PLATELET COUNT 274 K/MM3 (134-434); RDW 14.2 % (11.9-15.9); WHITE BLOOD COUNT 8.4 K/mm3 (4.0-10.0)
[2020-08-01 19:01] LABS: CHLORIDE 95 mmol/L (98-107); SODIUM 129 mmol/L (136-145)
[2020-08-01 19:04] LABS: ALBUMIN 4.1 g/dl (3.4-5.0); ANION GAP 11 MMOL/L (8-16); BLOOD UREA NITROGEN 11.1 mg/dL (7-18); CO2 23 mmol/L (21-32); GLUCOSE,RANDOM 184 mg/dL (74-106)
[2020-08-01 19:07] LABS: CREATININE 0.9 mg/dL (0.55-1.3); SGOT/AST 19 U/L (15-37); SGPT/ALT 47 U/L (13-61)
[2020-08-01 19:08] LABS: BILIRUBIN,TOTAL 0.7 mg/dL (0.2-1)
[2020-08-01 19:09] LABS: TOT PROT 7.7 g/dl (6.4-8.2)
[2020-08-01 19:10] LABS: ALK PHOS 104 U/L (45-117)
[2020-08-01] MEDS ORDERED: POTASSIUM CHLORIDE 20 MEQ PREMIX IVPB 100 ML IVPB ONE (19:19)
[2020-08-01] MEDS ORDERED: KCL 10 MEQ IVPB 10 MEQ/100 ML INFUS.BAG IVPB SCH (19:30)
[2020-08-01] MEDS ORDERED: KCL 10 MEQ IVPB 10 MEQ/100 ML INFUS.BAG IVPB ONE (20:10)
[2020-08-01] MEDS ORDERED: hydrALAZINE HCL 50 MG TABLET (FP) PO ONE (20:34)
[2020-08-01] MEDS ORDERED: hydrALAZINE HCL 25 MG TABLET (FP) ONE ×2 (20:37→21:07)
[2020-08-01 20:58] VITALS: TEMP 98.4
[2020-08-01] MEDS ORDERED: NAPROXEN 500 MG TABLET PO ONE (21:25)
[2020-08-01] MEDS ORDERED: NAPROXEN 250 MG TABLET PO ONE (21:26)
[2020-08-01] MEDS ORDERED: NAPROXEN 500 MG TABLET ONE (21:27)
[2020-08-01 22:19] VITALS: BP 150/85; PULSE 113
== END 2020-08-01 22:19 | disposition home or self-care (01) ==
LOC: JER 16:43
PROC: 3E0333Z Introduction of Anti-inflammatory into Peripheral Vein, Percutaneous Approach (ICD-10-PCS; principal; 2020-08-01)
PROC: 3E033GC Introduction of Other Therapeutic Substance into Peripheral Vein, Percutaneous Approach (ICD-10-PCS; 2020-08-01)
PROC: 3E033GC Introduction of Other Therapeutic Substance into Peripheral Vein, Percutaneous Approach (ICD-10-PCS; 2020-08-01)
PROC: 3E033GC Introduction of Other Therapeutic Substance into Peripheral Vein, Percutaneous Approach (ICD-10-PCS; 2020-08-01)
PROC: 3E0337Z Introduction of Electrolytic and Water Balance Substance into Peripheral Vein, Percutaneous Approach (ICD-10-PCS; 2020-08-01)
DX: R11.2 Nausea with vomiting, unspecified (principal)
CPT/HCPCS: 36415; 71045-TC-FY; 74019-TC-FY; 74177-TC; 80053; 82550; 82553; 83605; 83690; 83735; 84100; 84484; 85025; 85610; 85730; 86850; 86900; 86901; 93005; 93010; 99285-25; J0131; Q9967